=== PATIENT | female | born 1955 | race Caucasian/White ===

== ENCOUNTER 2016-05-26 16:30 | Emergency (ER) | payer OTHER ==
[2016-05-26 16:36] VITALS: RESP 18; BMI 28.3
[2016-05-26] MEDS ORDERED: Sodium Chloride 0.9% 1,000 ML IV ONE (16:55)
[2016-05-26] MEDS ORDERED: Sodium Chloride 0.9% 1,000 ML ONE (17:08)
--- NOTE | 2016-05-26 17:12 | C.PDOC ---
History Of Present Illness 60-year-old female, PMHx includes Hypertension and Diabetes, presents to the emergency department with multiple complaints. she says her chief complaint is an intermittent generalized headache for the past month, that is associated with light headedness. Patient states she is taking Tylenol and Advil at home with transient relief. she also reports many other complaints including lightheadedness, throat pain, body pain, abdominal pain. Time Seen by Provider: 05/26/16 16:37 Chief Complaint (Nursing): Headache History Per: Patient History/Exam Limitations: no limitations Onset/Duration Of Symptoms: Days, Intermittent Episodes Past Medical History Reviewed: Historical Data, Nursing Documentation, Vital Signs Vital Signs: Last Vital Signs Temp 98.0 F 05/26/16 19:14 Pulse 72 05/26/16 19:14 Resp 18 05/26/16 19:14 BP 147/71 05/26/16 19:14 Pulse Ox 99 05/26/16 19:14 - Medical History PMH: Asthma, Diabetes, HTN, Hypercholesterolemia, Hyperlipidemia, Hypothyroidism Family History: States: Unknown Family Hx - Social History Hx Tobacco Use: No Hx Alcohol Use: No Hx Substance Use: No - Immunization History Hx Tetanus Toxoid Vaccination: No Hx Influenza Vaccination: No Hx Pneumococcal Vaccination: No Review Of Systems Except As Marked, All Systems Reviewed And Found Negative. Constitutional: Positive for: Weakness. Negative for: Fever, Chills ENT: Positive for: Throat Pain Cardiovascular: Positive for: Light Headedness. Negative for: Chest Pain Respiratory: Negative for: Cough, Shortness of Breath Gastrointestinal: Positive for: Abdominal Pain. Negative for: Nausea, Vomiting , Diarrhea Genitourinary: Negative for: Dysuria Musculoskeletal: Negative for: Neck Pain, Back Pain Skin: Negative for: Rash Neurological: Positive for: Headache, Dizziness. Negative for: Weakness, Numbness Physical Exam - Physical Exam Appears: Non-toxic, No Acute Distress Skin: Warm, Dry, No Rash Head: Atraumatic, Normacephalic Eye(s): bilateral: Normal Inspection, PERRL, EOMI Nose: Normal Oral Mucosa: Moist Tongue: No Swelling Lips: No Swelling Throat: No Erythema, No Exudate Neck: Normal ROM, Supple Cardiovascular: Rhythm Regular, No Murmur Respiratory: Normal Breath Sounds, No Decreased Breath Sounds, No Accessory Muscle Use, No Rales, No Rhonchi, No Stridor, No Wheezing Gastrointestinal/Abdominal: Bowel Sounds, Soft, No Tenderness, No Distention, No Guarding, No Rebound Extremity: Normal ROM, No Swelling Pulses: Left Radial: Normal, Right Radial: Normal Neurological/Psych: Oriented x3, Normal Speech, Normal Cognition, Normal Cranial Nerves, No Cerebellar Signs, Normal Motor, Normal Sensation, Normal Reflexes, Other (No focal deficits.) ED Course And Treatment - Laboratory Results Result Diagrams: 05/26/16 17:13 05/26/16 17:56 ECG: Interpreted By Me, Viewed By Me ECG Rhythm: Sinus Rhythm ECG Interpretation: No Acute Changes Interpretation Of ECG: Normal [place]. Rate From EC O2 Sat by Pulse Oximetry: 97 Medical Decision Making Medical Decision Making: Prior Visits Notes and records from previous visits were reviewed. Patient seen in ED for dizziness/vertigo on 03/19/16; Patient had a CT head that showed: No evidence for acute intracranial abnormality or displaced calvarial fracture. 1856 the pt reports improvement in her sx. she is resting comfortably in no distress. I disc test results w her and advised follow up w pcp tomorrow and return if worse. she v/u and is agreeable w this plan. all questions and concerns addressed at this time. Head CT: Read by radiologist:Rosenda Sanchez MD EXAM: CT Head Without Intravenous Contrast. CLINICAL HISTORY: 60 years old, female; Signs and symptoms; Dizziness; Additional info: Headache TECHNIQUE: Axial computed tomography images of the head/brain without intravenous contrast. This CT exam was performed using one or more of the following dose reduction techniques: automated exposure control, adjustment of the mA and/or kV according to patient size, and/or use of iterative reconstruction technique. COMPARISON: CT - HEAD W/O CONTRAST 03/10/2016 12:27:25 AM FINDINGS: Brain: There are chronic microvascular ischemic changes. No hemorrhage. Ventricles: Unremarkable. No ventriculomegaly. Bones/joints: Unremarkable. No acute fracture. Soft tissues: Unremarkable. Sinuses: Unremarkable as visualized. No acute sinusitis. Mastoid air cells: Unremarkable as visualized. No mastoid effusion. IMPRESSION: No acute findings. Disposition - Disposition Referrals: Pramod Gomez MD [Staff Provider] - Disposition: HOME/ ROUTINE Disposition Time: 18:58 Condition: IMPROVED Additional Instructions: Please follow up with your doctor tomorrow. Return to the ER for any worsening symptoms or for any other concerns. Instructions: Migraine Headache (ED), Tension Headache (ED) Forms: Gen Discharge Inst Turkmen Print Language: VIETNAMESE - Clinical Impression Clinical Impression: Headache - Scribe Statement The provider has reviewed the documentation as recorded by the Gely Zee All medical record entries made by the Rosmeryibanjali were at my direction and personally dictated by me. I have reviewed the chart and agree that the record accurately reflects my personal performance of the history, physical exam, medical decision making, and the department course for this patient. I have also personally directed, reviewed, and agree with the discharge instructions and disposition.
[2016-05-26 17:24] LABS: BASO % 0.5 % (0.0-2.0); EOS % 0.5 % (0.0-4.0); HEMATOCRIT 36.2 % (34.0-47.0); LYMPH # 1.4 K/uL (1.0-4.3); LYMPH % 19.9 % (20.0-40.0); MEAN CELL VOLUME 82.9 fL (81.0-99.0); MEAN CORPUSCULAR HEMOGLOBIN 27.5 pg (27.0-31.0); MEAN CORPUSCULAR HGB CONC 33.2 g/dL (33.0-37.0); MEAN PLATELET VOLUME 8.5 fL (7.2-11.7); MONO # 0.5 K/uL (0.0-0.8); MONO % 6.5 % (0.0-10.0); RED CELL DISTRIBUTION WIDTH 15.3 % (11.5-14.5); WHITE BLOOD COUNT 6.9 K/uL (4.8-10.8)
[2016-05-26 17:40] LABS: RBC URINE < 1 /hpf (0-3); URINE BACTERIA RARE (<OCC); URINE BILIRUBIN NEGATIVE (NEGATIVE); URINE BLOOD NEGATIVE (NEGATIVE); URINE COLOR Yellow (YELLOW); URINE GLUCOSE (UA) NORMAL (Normal); URINE KETONE TRACE mg/dL (NEGATIVE); URINE LEUKOCYTE ESTERASE TRACE Leu/uL (Negative); URINE PROTEIN NEGATIVE (NEGATIVE); URINE UROBILINOGEN NORMAL mg/dL (0.2-1.0); WBC URINE 5 /hpf (0-5)
--- NOTE | 2016-05-26 17:56 | RAD ---
HISTORY: lightheaded COMPARISON: 03/31/2016 TECHNIQUE: Chest PA and lateral FINDINGS: LUNGS: No active pulmonary disease. PLEURA: No significant pleural effusion identified. No pneumothorax apparent. CARDIOVASCULAR: Normal. OSSEOUS STRUCTURES: No significant abnormalities. VISUALIZED UPPER ABDOMEN: Normal. OTHER FINDINGS: None. IMPRESSION: No active disease.
[2016-05-26 18:08] LABS: CHLORIDE 100 mmol/L (98-107); POTASSIUM 5.7 mmol/L (3.6-5.2); SODIUM 137 mmol/L (132-148)
[2016-05-26 18:10] LABS: BILIRUBIN,TOTAL 1.3 mg/dL (0.2-1.3); GFR AFRICAN-AMERICAN > 60
[2016-05-26 18:11] LABS: ALB/GLOB RATIO 1.3 (1.0-2.1); ALKALINE PHOSPHATASE 31 U/L (38-126); ALT/SGPT 13 U/L (9-52); AST/SGOT 44 U/L (14-36); BLOOD UREA NITROGEN 12 mg/dL (7-17); CALCIUM 8.6 mg/dl (8.6-10.4); CARBON DIOXIDE 23 mmol/L (22-30); GLUCOSE,RANDOM 93 mg/dL (65-105); TOTAL PROTEIN 7.6 g/dL (6.3-8.3)
[2016-05-26 19:15] VITALS: BP 147/71; PULSE 72; TEMP 98
[2016-05-26 23:56] VITALS: O2SAT 97
--- NOTE | 2016-05-27 08:22 | CT ---
PROCEDURE: CT HEAD WITHOUT CONTRAST. HISTORY: headache COMPARISON: None available. TECHNIQUE: Axial computed tomography images were obtained through the head/brain without intravenous contrast. Radiation dose: Total exam DLP = seven hundred sixty-nine mGy-cm. FINDINGS: HEMORRHAGE: No intracranial hemorrhage. BRAIN: No mass effect or edema. Scattered focal lucencies in the subcortical and periventricular white matter suggestive for chronic microvascular ischemic change. VENTRICLES: Unremarkable. No hydrocephalus. CALVARIUM: Unremarkable. PARANASAL SINUSES: Unremarkable as visualized. No significant inflammatory changes. MASTOID AIR CELLS: Unremarkable as visualized. No inflammatory changes. OTHER FINDINGS: None. IMPRESSION: Chronic microvascular ischemic changes. If focal neurologic deficit persists, consider MRI. These findings were preliminarily reported at 5:57 p.m. on 05/26/[address] Tianna Sanchez from [facility].
--- NOTE | 2016-05-27 16:25 | CARD ---
APPROVED REPORT EKG Measurement Heart [id number] <Conclusion> Normal sinus rhythm Minimal voltage criteria for LVH, may be normal variant Borderline ECG
== END 2016-05-26 19:15 | disposition home or self-care (01) ==
LOC: C.ER 16:30
DX: R51 Headache (principal)
CPT/HCPCS: 70450; 71020; 80053; 81001; 82948; 83690; 84484; 85025; 87804; 93005; 96361; 96374; 99285; J1885; J7040

== ENCOUNTER 2016-07-30 07:37 | Day surgery (SDC) | payer OTHER ==
[2016-07-15 11:01] VITALS: BMI 28.3
[2016-07-30 08:47] VITALS: TEMP 97
[2016-07-30] MEDS ORDERED: Propofol 10 mg/ml Inj (20 ML) ONE (09:39)
--- NOTE | 2016-07-30 09:47 | CP.SDSHP ---
Same Day Surgery H & P - History Proposed Procedure: EGD Pre-Op Diagnosis: SEE NOTES - Previous Medical/Surgical History Endocrine/Metabolic: Thyroid Disease, Diabetes Neuro: Backaches, Other Misc: Other Pain: 4.Moderate Pain - Allergies Allergies: Allergies No Known Allergies Allergy (Verified 05/26/16 16:33) - Physical Exam General Appearance: N Vital Signs: Vital Signs 07/30/16 07/30/16 08:28 09:44 Temperature 97 F L 97 F L Pulse Rate 78 78 Respiratory 19 19 Rate Blood Pressure 146/82 146/82 O2 Sat by Pulse 99 99 Oximetry Mental Status: Alert & Oriented x3 Neuro: Other Heart: WNL Lungs: WNL GI: Other - {Optional Preform as Required} Breast: WNL Abdomen: Other Rectal: Other Integument: WNL : WNL Ortho: Other ENT: WNL - Impression Pt. Evaluated Today:Candidate for Anesthesia & Procedure: Yes - Date & Time Time: 09:47 Short Stay Discharge - Short Stay Discharge Admitting Diagnosis/Reason for Visit: DYSPEPSIA Disposition: HOME/ ROUTINE
[2016-07-30] MEDS ORDERED: Belladonna-Phenobarbital PO ONE (09:48)
[2016-07-30 10:22] VITALS: O2SAT 98
[2016-07-30 10:53] VITALS: BP 121/69; PULSE 65; RESP 16
== END 2016-07-30 10:48 | disposition home or self-care (01) ==
LOC: C.ENDO 07:37
PROVIDERS: ATTEND Specialist
DX: K29.80 Duodenitis without bleeding (principal); K44.9 Diaphragmatic hernia without obstruction or gangrene; K29.70 Gastritis, unspecified, without bleeding
CPT/HCPCS: 43239; 82948; 88305; 88342; J2001; J2704; J3010